=== PATIENT | female | born 1970 | race Caucasian/White ===

== ENCOUNTER → 2017-09-25 09:04 | Outpatient (CLI) | payer MEDICARE, MEDICAID, SELFPAY ==
[2017-09-25 10:50] LABS: Basophils % 0.5 % (0.1-2.0); Eosinophils # 0.1 K/mm3 (0.0-0.4); Eosinophils % 1.5 % (0.1-12.0); Hemoglobin 12.3 g/dL (12.2-16.2); Lymphocytes # 1.8 K/mm3 (0.7-4.5); Lymphocytes % 24.6 K/mm3 (10-50); Mean Corpuscular HGB Conc 29.2 g/dL (31.8-35.4); Mean Corpuscular Hemoglobin 24.8 pg (27.0-31.2); Mean Corpuscular Volume 84.9 fl (81-99); Mean Platelet Volume 7.6 fl (7.4-10.4); Monocytes # 0.4 K/mm3 (0.1-1.0); Monocytes % 5.7 % (1.7-9.3); Neutrophils % 67.7 % (37.0-80.0); Platelet Count 324 K/mm3 (142-424); Red Blood Count 4.95 M/mm3 (4.20-5.40); Red Cell Distribution Width 15.3 % (11.5-17.5); White Blood Count 7.4 K/mm3 (4.8-10.8)
[2017-09-25 11:14] LABS: Alanine Aminotransferase 16 U/L (12-78); Albumin Level 3.6 gm/dL (3.4-5.0); Alkaline Phosphatase 132 U/L (46-116); Anion Gap 12.1 mEq/L (5-15); Aspartate Amino Transferase 10 U/L (15-37); Bilirubin,Total 0.3 mg/dL (0.2-1.0); Blood Urea Nitrogen 10 mg/dL (7-18); Carbon Dioxide 28 mmol/L (21.0-32.0); Chloride 103 mmol/L (98-107); Creatinine,Serum 0.66 mg/dL (0.55-1.02); Estimated Glomerular Filt Rate 96 ml/min (>60); Ferritin 7 ng/mL (8-388); GFR (African American) 116 ML/MIN (>60); Globulin 3.5 gm/dl (1.3-3.2); Glucose 94 mg/dL (74-106); Potassium 5.1 mmoL/L (3.5-5.1); Sodium 138 mmol/L (136-145); Total Protein,Serum 7.1 gm/dL (6.4-8.2)
[2017-09-27 06:11] LABS: Vitamin B12 222 pg/mL (232-1245)
== END ==
PROVIDERS: Visit Provider Internal Medicine Adolescent Medicine
DX: J45.40 Moderate persistent asthma, uncomplicated (principal); G60.9 Hereditary and idiopathic neuropathy, unspecified; G25.81 Restless legs syndrome; Z79.899 Other long term (current) drug therapy
CPT/HCPCS: 36415; 80053; 82607; 82728; 83735; 85025